=== PATIENT | female | born 1985 | race American Indian/Alaskan Native ===

== ENCOUNTER 2016-03-29 08:24 | Emergency (ER) | payer MEDICAID ==
[2016-03-29 09:15] LABS: Basophils % (Auto) 0.9 % (0.0-1.8); Eosinophils % (Auto) 1.1 % (0.0-4.3); Hematocrit 42.3 % (30.3-42.9); Hemoglobin 14.1 gm/dl (10.1-14.3); Mean Corpuscular HGB Conc 33 % (30-34); Mean Corpuscular Hemoglobin 33 pg (28-32); Mean Corpuscular Volume 99 fl (79-97); Platelet Count 270 K/mm3 (140-440); Red Blood Count 4.29 M/mm3 (3.65-5.03); Red Cell Distribution Width 12.7 % (13.2-15.2); White Blood Count 4.7 K/mm3 (4.5-11.0)
[2016-03-29 09:24] LABS: Alanine Aminotransferase 12 units/L (7-56); Albumin 4.1 g/dL (3.9-5); Albumin/Globulin Ratio 1.5 %; Alkaline Phosphatase 32 units/L (35-129); Anion Gap 16 mmol/L; BUN/Creatinine Ratio 13.33; Bilirubin,Total 0.6 mg/dL (0.1-1.2); Blood Urea Nitrogen 8 mg/dL (7-17); Calcium 8.5 mg/dL (8.4-10.2); Carbon Dioxide 25 mmol/L (22-30); Glucose 118 mg/dL (65-100); Lipase 21 units/L (13-60); Potassium 3.9 mmol/L (3.6-5.0); Sodium 141 mmol/L (137-145); Total Protein 6.9 g/dL (6.3-8.2)
[2016-03-29 09:39] LABS: Bacteria,Urine 3+ /HPF (Negative); Bilirubin,Urine NEG (Negative); Blood,Urine LG (Negative); Ketones,Urine NEG (Negative); Leukocyte Esterase,Urine MOD (Negative); Mucus,Urine 3+ /HPF; Nitrite,Urine POS (Negative)
--- NOTE | 2016-03-29 09:47 | Emergency Department Report ---
Chief Complaint: Chest Pain Stated Complaint: BLEEDING/CLOTTING/CHEST PAIN Time Seen by Provider: 03/29/16 09:42 - HPI History of Present Illness: Patient reports vaginal bleeding with low abdominal and chest pain , migraine headaches, intermittent blurred vision and loss of appetite for over a month. Patient was seen and treated in the ED last week, however symptoms continue to persist. She was instructed by Dr. Portillo to return back for the ED for further evaluation. LMP 10/15/15 irregular menses - ROS Review of Systems: all other systems are unremarkable except for documentation in HPI - Exam Vital Signs: Vital Signs 03/29/16 08:36 Temperature 97.8 F Pulse Rate 68 Respiratory 18 Rate Blood Pressure 110/68 O2 Sat by Pulse 100 Oximetry Physical Exam: Gen: well developed and nourished, NAD Cardio: heart sounds present S1-S2, no ectopy, murmur or gallops Resp: even and unlabored, lungs CTA geremias, no wheezing, rales or rhonchi MSE screening note: Focused history and physical exam performed. Due to findings the following was ordered: radiology and laboratory studies ordered ED Medical Decision Making - Lab Data Result diagrams: 03/29/16 08:51 03/29/16 08:51 ED Disposition for MSE Condition: Stable
[2016-03-29 10:24] LABS: Creatine Kinase MB 1.4 ng/mL (0.0-4.0)
--- NOTE | 2016-03-29 11:49 | XRay Report ---
ROUTINE CHEST, TWO VIEWS: HISTORY: chest pain. The trachea, heart, mediastinal contour, lung arreola and bony thorax are unremarkable. IMPRESSION: Unremarkable chest x-ray.
[2016-03-29 14:15] VITALS: BP 120/89
--- NOTE | 2016-03-29 14:27 | Emergency Department Report ---
ED General Adult HPI - General Chief complaint: Chest Pain Stated complaint: BLEEDING/CLOTTING/CHEST PAIN Time Seen by Provider: 03/29/16 14:22 Source: patient Mode of arrival: Ambulatory Limitations: No Limitations - History of Present Illness Initial comments: The patient states that she noted bright red blood on her toilet paper yesterday and again today. She has history of hemorrhoids with . She was also had some vague suprapubic and lower back discomfort and perhaps some dysuria. She is a poor historian. She's had no recent fever or chills there's been no nausea vomiting diarrhea or chills. She reports neurological change. -: days(s) Location: back, abdomen Quality: aching Consistency: intermittent, now resolved Improves with: none Worsens with: none Associated Symptoms: denies other symptoms Treatments Prior to Arrival: none - Related Data Previous Rx's Medication Instructions Recorded Last Taken Type Sulfamethoxazole/Trimethoprim 1 tab PO BID #10 tab 03/29/16 Unknown Rx [Bactrim 400-80 mg] traMADol [Ultram] 50 mg PO Q6HR PRN #10 tablet 03/29/16 Unknown Rx Allergies Allergy/AdvReac Type Severity Reaction Status Date / Time ibuprofen Allergy Intermediate Rash Verified 12/07/13 14:25 ED Review of Systems ROS: Stated complaint: BLEEDING/CLOTTING/CHEST PAIN Other details as noted in HPI Constitutional: denies: chills, fever Eyes: denies: eye pain, eye discharge, vision change ENT: denies: ear pain, throat pain Respiratory: denies: cough, shortness of breath, wheezing Cardiovascular: denies: chest pain, palpitations Endocrine: no symptoms reported Gastrointestinal: abdominal pain. denies: nausea, diarrhea Genitourinary: dysuria. denies: urgency, discharge Musculoskeletal: back pain. denies: joint swelling, arthralgia Skin: denies: rash, lesions Neurological: denies: headache, weakness, paresthesias Psychiatric: denies: anxiety, depression Hematological/Lymphatic: denies: easy bleeding, easy bruising ED Past Medical Hx - Past Medical History Hx Congestive Heart Failure: No Hx Diabetes: No Hx Psychiatric Treatment: No Hx Asthma: No Hx COPD: No Additional medical history: bronchitis - Surgical History Additional Surgical History: D&C, ectopic (2013) - Social History Smoking Status: Unknown if ever smoked Substance Use Type: None - Medications Home Medications: Home Medications Medication Instructions Recorded Confirmed Last Taken Type Sulfamethoxazole/Trimethoprim 1 tab PO BID #10 tab 03/29/16 Unknown Rx [Bactrim 400-80 mg] traMADol [Ultram] 50 mg PO Q6HR PRN #10 tablet 03/29/16 Unknown Rx ED Physical Exam - General Limitations: No Limitations General appearance: alert, in no apparent distress, obese - Head Head exam: Present: atraumatic, normocephalic - Eye Eye exam: Present: normal appearance. Absent: scleral icterus - ENT ENT exam: Present: normal exam, mucous membranes moist - Neck Neck exam: Present: normal inspection - Respiratory Respiratory exam: Present: normal lung sounds bilaterally. Absent: respiratory distress - Cardiovascular Cardiovascular Exam: Present: regular rate, normal rhythm. Absent: systolic murmur, diastolic murmur, rubs, gallop - GI/Abdominal GI/Abdominal exam: Present: soft, normal bowel sounds. Absent: distended, tenderness, guarding, rebound, rigid - Rectal Rectal exam: Present: hemorrhoids (external hemorrhoid no blood noted.) - Extremities Exam Extremities exam: Present: normal inspection - Back Exam Back exam: Present: normal inspection - Neurological Exam Neurological exam: Present: alert, oriented X3, CN II-XII intact. Absent: motor sensory deficit - Psychiatric Psychiatric exam: Present: normal affect, normal mood - Skin Skin exam: Present: warm, dry, intact, normal color. Absent: rash ED Course Vital Signs 03/29/16 03/29/16 03/29/16 08:36 14:01 14:14 Temperature 97.8 F Pulse Rate 68 90 83 Respiratory 18 16 Rate Blood Pressure 110/68 Blood Pressure 120/89 [Right] O2 Sat by Pulse 100 100 Oximetry 03/29/16 03/29/16 14:16 14:19 Temperature Pulse Rate 83 Respiratory 16 Rate Blood Pressure Blood Pressure [Right] O2 Sat by Pulse 100 Oximetry ED Medical Decision Making - Lab Data Result diagrams: 03/29/16 08:51 03/29/16 08:51 Laboratory Results - last 24 hr 03/29/16 03/29/16 03/29/16 08:51 08:51 08:58 WBC 4.7 RBC 4.29 Hgb 14.1 Hct 42.3 MCV 99 H MCH 33 H MCHC 33 RDW 12.7 L Plt Count 270 Lymph % (Auto) 48.1 H [place] % (Auto) 10.6 H Eos % (Auto) 1.1 Baso % (Auto) 0.9 Lymph # 2.3 [place] # 0.5 Eos # 0.0 Baso # 0.0 Seg Neutrophils % 39.3 L Seg Neutrophils # 1.8 Sodium 141 Potassium 3.9 Chloride 104.0 Carbon Dioxide 25 Anion Gap 16 BUN 8 Creatinine 0.6 L Estimated GFR > 60 BUN/Creatinine Ratio 13.33 Glucose 118 H Calcium 8.5 Total Bilirubin 0.6 AST 18 ALT 12 Alkaline Phosphatase 32 L Total Creatine Kinase CK-MB (CK-2) CK-MB (CK-2) Rel Index Troponin T < 0.010 Total Protein 6.9 Albumin 4.1 Albumin/Globulin Ratio 1.5 Lipase 21 HCG, Quant Urine Color [place] Urine Turbidity Cloudy Urine pH 5.0 Ur Specific [place] 1.023 Urine Protein 30 mg/dl Urine Glucose (UA) Neg Urine Ketones Neg Urine Blood Lg Urine Nitrite Pos Urine Bilirubin Neg Urine Urobilinogen 2.0 Ur Leukocyte Esterase Mod Urine WBC (Auto) 34.0 H Urine RBC (Auto) 7.0 U Epithel Cells (Auto) 4.0 Urine Bacteria (Auto) 3+ Urine Mucus 3+ 03/29/16 03/29/16 09:52 09:53 WBC RBC Hgb Hct MCV MCH MCHC RDW Plt Count Lymph % (Auto) [place] % (Auto) Eos % (Auto) Baso % (Auto) Lymph # [place] # Eos # Baso # Seg Neutrophils % Seg Neutrophils # Sodium Potassium Chloride Carbon Dioxide Anion Gap BUN Creatinine Estimated GFR BUN/Creatinine Ratio Glucose Calcium Total Bilirubin AST ALT Alkaline Phosphatase Total Creatine Kinase 105 CK-MB (CK-2) 1.4 CK-MB (CK-2) Rel Index 1.3 Troponin T Total Protein Albumin Albumin/Globulin Ratio Lipase HCG, Quant < 2 Urine Color Urine Turbidity Urine pH Ur Specific [place] Urine Protein Urine Glucose (UA) Urine Ketones Urine Blood Urine Nitrite Urine Bilirubin Urine Urobilinogen Ur Leukocyte Esterase Urine WBC (Auto) Urine RBC (Auto) U Epithel Cells (Auto) Urine Bacteria (Auto) Urine Mucus Critical care attestation.: If time is entered above; I have spent that time in minutes in the direct care of this critically ill patient, excluding procedure time. ED Disposition Clinical Impression: External hemorrhoids, Rectal bleeding Urinary tract infection Qualifiers: Urinary tract infection type: site unspecified Hematuria presence: without hematuria Qualified Code(s): N39.0 - Urinary tract infection, site not specified Disposition: DISCHARGED TO HOME OR SELFCARE Is pt being admited?: No Does the pt Need Aspirin: No Condition: Stable Instructions: Hemorrhoids (ED), Rectal Bleeding (ED), Urinary Tract Infection in Women (ED) Additional Instructions: Follow-up with a primary care provider. This persists evaluation with a GI doctor may be required. Return any acute change or problem. Rx as directed. Hemorrhoid suppositories or preparation H is [id number]. Prescriptions: Sulfamethoxazole/Trimethoprim [Bactrim 400-80 mg] 1 tab PO BID #10 tab traMADol [Ultram] 50 mg PO Q6HR PRN #10 tablet PRN Reason: Pain Referrals: PRIMARY CARE, [Primary Care Provider] - 3-5 Days [facility] [Provider Group] - 3-5 Days Time of Disposition: 15:05
--- NOTE | 2016-03-29 15:23 | Emergency Department Report ---
ED Female HPI - General Chief complaint: Vaginal Bleeding Stated complaint: BLEEDING/CLOTTING/CHEST PAIN Time Seen by Provider: 03/29/16 14:22 Source: patient Mode of arrival: Ambulatory Limitations: No Limitations - History of Present Illness Initial comments: The patient states that she was sent by Dr. Patric Portillo to the emergency department for evaluation of vaginal bleeding of one month's duration. She states that she has occasional abdominal cramping but does not complain of any pain at this time. Apparently she mentioned chest pain as well to the triage nurse but does not complain of chest pain either. She seems quite emotionally labile. He is very insistent that she be seen by Dr. Patric Portillo. She states that she was told to page him right away when she arrives. He is hardly allowing me to examine her. Review the patient's previous medical records and the case that she was seen on 10/18/15 in the emergency department with a diagnosis of functional uterine bleeding. Apparently the patient has had this problem for for longer than one month. In addition in 2013 she had a left salpingectomy for ectopic . At that time she required a psychiatric consult with Rubi Diane. Apparently she was on a 1013 at that time but ultimately released for suicidal ideation. Has no ostensible psychiatric complaints at this time. I did additionally find a culture report from 02/27/2016 the patient's urine. This showed a urinary tract infection with Escherichia coli. Patient states that she has not taken any antibiotics for UTI for quite some time. Her organism was sensitive to Bactrim. Not certain if she was noncompliant. In addition to having no chest pain at this time the patient denies cough or active vaginal bleeding. She is not complaining of any abdominal pain. MD Complaint: vaginal bleeding -: month(s) Location: suprapubic Radiation: non-radiating Severity: Unable to Determine Quality: other (poorly) Consistency: intermittent Associated Symptoms: vaginal bleeding - Related Data Previous Rx's Medication Instructions Recorded Last Taken Type Sulfamethoxazole/Trimethoprim 1 tab PO BID #14 tab 03/29/16 Unknown Rx [Bactrim 400-80 mg] Allergies Allergy/AdvReac Type Severity Reaction Status Date / Time ibuprofen Allergy Intermediate Rash Verified 12/07/13 14:25 ED Review of Systems ROS: Stated complaint: BLEEDING/CLOTTING/CHEST PAIN Other details as noted in HPI Constitutional: denies: chills, fever Eyes: denies: eye pain, eye discharge, vision change ENT: denies: ear pain, throat pain Respiratory: denies: cough, shortness of breath, wheezing Cardiovascular: denies: chest pain, palpitations Endocrine: no symptoms reported Gastrointestinal: abdominal pain. denies: nausea, diarrhea Genitourinary: dysuria, other (intermittent for month). denies: urgency, discharge Musculoskeletal: back pain. denies: joint swelling, arthralgia Skin: denies: rash, lesions Neurological: denies: headache, weakness, paresthesias Psychiatric: denies: anxiety, depression Hematological/Lymphatic: denies: easy bleeding, easy bruising ED Past Medical Hx - Past Medical History Hx Congestive Heart Failure: No Hx Diabetes: No Hx Psychiatric Treatment: No Hx Asthma: No Hx COPD: No Additional medical history: bronchitis - Surgical History Additional Surgical History: D&C, ectopic (2013) - Social History Smoking Status: Unknown if ever smoked Substance Use Type: None - Medications Home Medications: Home Medications Medication Instructions Recorded Confirmed Last Taken Type Sulfamethoxazole/Trimethoprim 1 tab PO BID #14 tab 03/29/16 Unknown Rx [Bactrim 400-80 mg] ED Physical Exam - General Limitations: No Limitations General appearance: alert, in no apparent distress, obese - Head Head exam: Present: atraumatic, normocephalic - Eye Eye exam: Present: normal appearance - ENT ENT exam: Present: mucous membranes moist - Neck Neck exam: Present: normal inspection. Absent: tenderness, meningismus - Respiratory Respiratory exam: Present: normal lung sounds bilaterally. Absent: respiratory distress - Cardiovascular Cardiovascular Exam: Present: regular rate, normal rhythm. Absent: systolic murmur, diastolic murmur, rubs, gallop - GI/Abdominal GI/Abdominal exam: Present: soft, normal bowel sounds. Absent: distended, tenderness, guarding, rebound, rigid, organomegaly, mass - External exam: Present: other (deferred) Speculum exam: Present: other (deferred) - Extremities Exam Extremities exam: Present: normal inspection - Back Exam Back exam: Present: normal inspection - Neurological Exam Neurological exam: Present: alert, oriented X3, CN II-XII intact. Absent: motor sensory deficit - Psychiatric Psychiatric exam: Present: normal affect, normal mood - Skin Skin exam: Present: warm, dry, intact, normal color. Absent: rash ED Course Vital Signs 03/29/16 03/29/16 03/29/16 08:36 14:01 14:14 Temperature 97.8 F Pulse Rate 68 90 83 Respiratory 18 16 Rate Blood Pressure 110/68 Blood Pressure 120/89 [Right] O2 Sat by Pulse 100 100 Oximetry 03/29/16 03/29/16 14:16 14:19 Temperature Pulse Rate 83 Respiratory 16 Rate Blood Pressure Blood Pressure [Right] O2 Sat by Pulse 100 Oximetry - Reevaluation(s) Reevaluation #1: The patient that her workup demonstrated a UTI and that we would treat that as well as culture her urine again. She immediately told me that she expected Dr. Portillo to come to the emergency department to see him. She is demanding that I page him right away. I told her that I had no problem doing so. However, I reassured her that we did not find any emergency medical condition that required an urgent [employer] consultation today. Nonetheless I was happy to call Dr. Portillo to discuss her case. Dr. Trinidad was cable television installer. Dr. Trinidad agreed that the patient did not require emergency evaluation. He stated that they would be happy to see her in the office. He informed me that the patient had not been in the office for more than 2 years. He also stated he was aware that she did have a psychiatric history upon review of her medical records. Not withstanding this, neither Dr. Trinidad nor I could see any reason for emergency evaluation by a farm marketer. 03/29/16 15:52 Spoke to the patient again. I offered to let her speak to Dr. Trinidad directly via telephone. The patient was aggressive with me concerning this but seemed to agree. I then a gentleman had joined her in the room. I found his behavior to be unreasonable and aggressive as well. Nonetheless, I informed them that I would ask Dr. Trinidad to speak to the patient. Dr. Trinidad was kind enough to speak to the patient. He told her that she should come to the office for evaluation. He told her that she did not need any emergency intervention or further examination by farm marketer at this time. Thus, the patient will be discharged. 03/29/16 15:53 ED Medical Decision Making - Lab Data Result diagrams: 03/29/16 08:51 03/29/16 08:51 Laboratory Results - last 24 hr 03/29/16 03/29/16 03/29/16 08:51 08:51 08:58 WBC 4.7 RBC 4.29 Hgb 14.1 Hct 42.3 MCV 99 H MCH 33 H MCHC 33 RDW 12.7 L Plt Count 270 Lymph % (Auto) 48.1 H [place] % (Auto) 10.6 H Eos % (Auto) 1.1 Baso % (Auto) 0.9 Lymph # 2.3 Bell # 0.5 Eos # 0.0 Baso # 0.0 Seg Neutrophils % 39.3 L Seg Neutrophils # 1.8 Sodium 141 Potassium 3.9 Chloride 104.0 Carbon Dioxide 25 Anion Gap 16 BUN 8 Creatinine 0.6 L Estimated GFR > 60 BUN/Creatinine Ratio 13.33 Glucose 118 H Calcium 8.5 Total Bilirubin 0.6 AST 18 ALT 12 Alkaline Phosphatase 32 L Total Creatine Kinase CK-MB (CK-2) CK-MB (CK-2) Rel Index Troponin T < 0.010 Total Protein 6.9 Albumin 4.1 Albumin/Globulin Ratio 1.5 Lipase 21 HCG, Quant Urine Color [place] Urine Turbidity Cloudy Urine pH 5.0 Ur Specific [place] 1.023 Urine Protein 30 mg/dl Urine Glucose (UA) Neg Urine Ketones Neg Urine Blood Lg Urine Nitrite Pos Urine Bilirubin Neg Urine Urobilinogen 2.0 Ur Leukocyte Esterase Mod Urine WBC (Auto) 34.0 H Urine RBC (Auto) 7.0 U Epithel Cells (Auto) 4.0 Urine Bacteria (Auto) 3+ Urine Mucus 3+ 03/29/16 03/29/16 09:52 09:53 WBC RBC Hgb Hct MCV MCH MCHC RDW Plt Count Lymph % (Auto) [place] % (Auto) Eos % (Auto) Baso % (Auto) Lymph # [place] # Eos # Baso # Seg Neutrophils % Seg Neutrophils # Sodium Potassium Chloride Carbon Dioxide Anion Gap BUN Creatinine Estimated GFR BUN/Creatinine Ratio Glucose Calcium Total Bilirubin AST ALT Alkaline Phosphatase Total Creatine Kinase 105 CK-MB (CK-2) 1.4 CK-MB (CK-2) Rel Index 1.3 Troponin T Total Protein Albumin Albumin/Globulin Ratio Lipase HCG, Quant < 2 Urine Color Urine Turbidity Urine pH Ur Specific [place] Urine Protein Urine Glucose (UA) Urine Ketones Urine Blood Urine Nitrite Urine Bilirubin Urine Urobilinogen Ur Leukocyte Esterase Urine WBC (Auto) Urine RBC (Auto) U Epithel Cells (Auto) Urine Bacteria (Auto) Urine Mucus Critical care attestation.: If time is entered above; I have spent that time in minutes in the direct care of this critically ill patient, excluding procedure time. ED Disposition Clinical Impression: DUB (dysfunctional uterine bleeding), Aggressive behavior Urinary tract infection Qualifiers: Urinary tract infection type: site unspecified Hematuria presence: without hematuria Qualified Code(s): N39.0 - Urinary tract infection, site not specified Disposition: DISCHARGED TO HOME OR SELFCARE Is pt being admited?: No Does the pt Need Aspirin: No Condition: Stable Instructions: Urinary Tract Infection in Women (ED) Additional Instructions: Follow-up with a primary care provider. This persists evaluation with a GI doctor may be required. Return any acute change or problem. Rx as directed. Hemorrhoid suppositories or preparation H is [id number]. Prescriptions: Sulfamethoxazole/Trimethoprim [Bactrim 400-80 mg] 1 tab PO BID #14 tab Referrals: PATRIC PORTILLO MD [Staff Physician] - 2-3 Days Time of Disposition: 15:49
== END 2016-03-29 16:05 | disposition home or self-care (01) ==
LOC: ED 08:24
DX: N93.8 Other specified abnormal uterine and vaginal bleeding (principal); N39.0 Urinary tract infection, site not specified; J40 Bronchitis, not specified as acute or chronic; Z88.8 Allergy status to other drugs, medicaments and biological substances
CPT/HCPCS: 36415; 71020; 80053; 81001; 82550; 82553; 83690; 84484; 84702; 85025; 87086; 93005; 93010

== ENCOUNTER 2018-12-20 21:09 | Emergency (ER) | payer MEDICAID ==
[2018-12-20 21:20] VITALS: BP 104/73
--- NOTE | 2018-12-20 21:28 | Event Note ---
ED Screening Note Date of service: 12/20/18 Time: 21:26 ED Screening Note: 33 y o female presents to Ed at 17 weeks gestationwith minimal amniotic fluid leaking x 5 days hasnt f/u with obgyn since last visit to ER This initial assessment/diagnostic orders/clinical plan/treatment(s) is/are subject to change based on patients health status, clinical progression and re- assessment by fellow clinical providers in the ED. Further treatment and workup at subsequent clinical providers discretion. Patient/guardian urged not to elope from the ED as their condition may be serious if not clinically assessed and managed. Initial orders include: US OB
[2018-12-20 21:57] LABS: Bilirubin,Urine NEG (Negative); Blood,Urine MOD (Negative); Color,Urine Yellow (Yellow); Mucus,Urine FEW /HPF; Protein,Urine <15 mg/dL mg/dL (Negative); Urobilinogen,Urine < 2.0 mg/dL (<2.0)
[2018-12-20] MEDS ORDERED: BUTORPHANOL 2 MG/1 ML INJ IV ONE (22:28)
[2018-12-20] MEDS ORDERED: ONDANSETRON 4 MG/2 ML INJ IV ONE (22:28)
[2018-12-20 22:57] LABS: Basophils % (Auto) 0.6 % (0.0-1.8); Eosinophils # (Auto) 0.1 K/mm3 (0.0-0.4); Eosinophils % (Auto) 1.9 % (0.0-4.3); Hematocrit 41.2 % (30.3-42.9); Lymphocytes % (Auto) 36.1 % (13.4-35.0); Mean Corpuscular HGB Conc 34 % (30-34); Mean Corpuscular Volume 99 fl (79-97); Monocytes # (Auto) 0.6 K/mm3 (0.0-0.8); Monocytes % (Auto) 11.3 % (0.0-7.3); Platelet Count 214 K/mm3 (140-440); Red Blood Count 4.17 M/mm3 (3.65-5.03); Red Cell Distribution Width 12.3 % (13.2-15.2)
--- NOTE | 2018-12-20 23:19 | Ultrasound Report ---
ULTRASOUND OBSTETRIC INDICATION / CLINICAL INFORMATION: vaginal leaking. Clinical Gestational Age (GA): 16 weeks 6 days TECHNIQUE: Transabdominal. COMPARISON: 12/13/18 FINDINGS: There is a single intrauterine . Biparietal Diameter = 3.5 cm = 16 weeks, 6 day(s). Head Circumference = 13.4 cm = 16 weeks, 6 day(s). Abdominal Circumference = 10.3 cm = 16 weeks, 2 day(s). Femur Length = 2.1 cm = 16 weeks, 2 day(s). Average Ultrasound Age (AUA) = 16 weeks, 4 day(s). Heart Rate: 146 beats per minute. Estimated Weight in grams (if calculated): 152 g Estimated Weight Growth Percentile (if calculated): Not calculated Position: breech. Cervix: closed. Length in cm (if measured): 3.4 Placenta: anterior and free of the os. Amniotic Fluid Volume: normal Amniotic Fluid Index (DUANE) in cm (if calculated): 6.3. Maternal Adnexa: No significant abnormality. IMPRESSION: 1. Single, living intrauterine with estimated sonographic age of 16 weeks, 6 day(s). 2. No acute sonographic abnormality. Signer Name: Pretty More MD Signed: 12/20/2018 11:15 PM Workstation Name: [id number]
[2018-12-20 23:38] LABS: Alanine Aminotransferase 16 units/L (7-56); Albumin 3.5 g/dL (3.9-5); BUN/Creatinine Ratio 18; Blood Urea Nitrogen 7 mg/dL (7-17); Calcium 8.5 mg/dL (8.4-10.2); Hemolysis Index 12
--- NOTE | 2018-12-21 00:40 | Emergency Department Report ---
ED General Adult HPI - General Chief complaint: Abdominal Pain Stated complaint: ABDOMINAL PAIN AND CHEST PAIN(17 WKS PREG) Time Seen by Provider: 12/20/18 21:26 Source: patient Mode of arrival: Ambulatory Limitations: No Limitations - History of Present Illness Initial comments: The patient presents to the emergency department the chief complaint of ab dominal pain that started 2 days ago. Patient states she is a with a history of 3 miscarriages who sees a doctor Denis at [facility] for this high risk . Patient also complains of having possible fluid leakage from her vagina. Patient denies any vaginal bleeding. -: Sudden Location: genitals Radiation: non-radiation Severity scale (0 -10): 6 Quality: other (pressure) Consistency: intermittent Improves with: none Worsens with: none Associated Symptoms: denies other symptoms Treatments Prior to Arrival: none - Related Data Previous Rx's Medication Instructions Recorded Last Taken Type Fluconazole [Diflucan TAB] 150 mg PO ONCE #1 tablet 12/13/18 Unknown Rx metroNIDAZOLE [Flagyl] 500 mg PO Q12HR #20 tab 12/13/18 Unknown Rx Acetaminophen/Codeine [Tylenol 1 tab PO Q6H PRN #15 tab 12/21/18 Unknown Rx /Codeine # 3 tab] Ondansetron [Zofran Odt] 4 mg PO Q4HR PRN #20 tab.rapdis 12/21/18 Unknown Rx Allergies Allergy/AdvReac Type Severity Reaction Status Date / Time ibuprofen Allergy Intermediate Rash Verified 12/07/13 14:25 ED Review of Systems ROS: Stated complaint: ABDOMINAL PAIN AND CHEST PAIN(17 WKS PREG) Other details as noted in HPI Comment: All other systems reviewed and negative Constitutional: denies: chills, fever Eyes: denies: eye pain, eye discharge, vision change ENT: denies: ear pain, throat pain Respiratory: denies: cough, shortness of breath, wheezing Cardiovascular: denies: chest pain, palpitations Endocrine: no symptoms reported Gastrointestinal: denies: abdominal pain, nausea, diarrhea Genitourinary: denies: urgency, dysuria, discharge Musculoskeletal: denies: back pain, joint swelling, arthralgia Skin: denies: rash, lesions Neurological: denies: headache, weakness, paresthesias Psychiatric: denies: anxiety, depression Hematological/Lymphatic: denies: easy bleeding, easy bruising ED Past Medical Hx - Past Medical History Previous Medical History?: Yes Hx Congestive Heart Failure: No Hx Diabetes: No Hx Psychiatric Treatment: No Hx Asthma: No Hx COPD: No Additional medical history: bronchitis - Surgical History Past Surgical History?: Yes Additional Surgical History: D&C, ectopic (2013), Left Salpingectomy - Social History Smoking Status: Never Smoker Substance Use Type: None - Medications Home Medications: Home Medications Medication Instructions Recorded Confirmed Last Taken Type Fluconazole [Diflucan TAB] 150 mg PO ONCE #1 tablet 12/13/18 Unknown Rx metroNIDAZOLE [Flagyl] 500 mg PO Q12HR #20 tab 12/13/18 Unknown Rx Acetaminophen/Codeine [Tylenol 1 tab PO Q6H PRN #15 tab 12/21/18 Unknown Rx /Codeine # 3 tab] Ondansetron [Zofran Odt] 4 mg PO Q4HR PRN #20 tab.rapdis 12/21/18 Unknown Rx ED Physical Exam - General Limitations: No Limitations General appearance: alert, in no apparent distress - Head Head exam: Present: atraumatic, normocephalic - Eye Eye exam: Present: normal appearance, PERRL, EOMI - ENT ENT exam: Present: mucous membranes moist - Neck Neck exam: Present: normal inspection - Respiratory Respiratory exam: Present: normal lung sounds bilaterally. Absent: respiratory distress - Cardiovascular Cardiovascular Exam: Present: regular rate, normal rhythm. Absent: systolic murmur, diastolic murmur, rubs, gallop - GI/Abdominal GI/Abdominal exam: Present: soft, normal bowel sounds - Rectal Rectal exam: Present: normal inspection - External exam: Present: normal external exam Speculum exam: Present: normal speculum exam, other (closed cervical os; exam chaperoned by Nurse Pauline Martines R.N.). Absent: erythema, vaginal discharge, cervical discharge, vaginal bleeding, laceration Bi-manual exam: Present: normal bi-manual exam - Extremities Exam Extremities exam: Present: normal inspection - Back Exam Back exam: Present: normal inspection - Neurological Exam Neurological exam: Present: alert, oriented X3 - Psychiatric Psychiatric exam: Present: normal affect, normal mood - Skin Skin exam: Present: warm, dry, intact, normal color. Absent: rash ED Course Vital Signs 12/20/18 12/20/18 21:14 23:35 Temperature 98.6 F Pulse Rate 80 Respiratory 16 18 Rate Blood Pressure 104/73 O2 Sat by Pulse 98 Oximetry ED Medical Decision Making - Lab Data Result diagrams: 12/20/18 22:31 12/20/18 22:31 Lab Results 12/20/18 12/20/18 12/20/18 Range/Units 21:30 22:31 22:31 WBC 5.7 (4.5-11.0) K/mm3 RBC 4.17 (3.65-5.03) M/mm3 Hgb 14.0 (10.1-14.3) gm/dl Hct 41.2 (30.3-42.9) % MCV 99 H (79-97) fl MCH 33 H (28-32) pg MCHC 34 (30-34) % RDW 12.3 L (13.2-15.2) % Plt Count 214 (140-440) K/mm3 Lymph % (Auto) 36.1 H (13.4-35.0) % [place] % (Auto) 11.3 H (0.0-7.3) % Eos % (Auto) 1.9 (0.0-4.3) % Baso % (Auto) 0.6 (0.0-1.8) % Lymph # 2.0 (1.2-5.4) K/mm3 [place] # 0.6 (0.0-0.8) K/mm3 Eos # 0.1 (0.0-0.4) K/mm3 Baso # 0.0 (0.0-0.1) K/mm3 Seg Neutrophils % 50.1 (40.0-70.0) % Seg Neutrophils # 2.8 (1.8-7.7) K/mm3 Sodium 135 L (137-145) mmol/L Potassium 4.0 (3.6-5.0) mmol/L Chloride 102.2 (98-107) mmol/L Carbon Dioxide 22 (22-30) mmol/L Anion Gap 15 mmol/L BUN 7 (7-17) mg/dL Creatinine 0.4 L (0.7-1.2) mg/dL Estimated GFR > 60 ml/min BUN/Creatinine Ratio 18 % Glucose 97 (65-100) mg/dL Calcium 8.5 (8.4-10.2) mg/dL Total Bilirubin 0.20 (0.1-1.2) mg/dL AST 21 (5-40) units/L ALT 16 (7-56) units/L Alkaline Phosphatase 48 (35-129) units/L Total Protein 6.6 (6.3-8.2) g/dL Albumin 3.5 L (3.9-5) g/dL Albumin/Globulin Ratio 1.1 % HCG, Quant (0-4) mIU/mL Urine Color Yellow (Yellow) Urine Turbidity Slightly-cloudy (Clear) Urine pH 5.0 (5.0-7.0) Ur Specific [place] 1.020 (1.003-1.030) Urine Protein <15 mg/dl (Negative) mg/dL Urine Glucose (UA) Neg (Negative) mg/dL Urine Ketones Tr (Negative) mg/dL Urine Blood Mod (Negative) Urine Nitrite Neg (Negative) Urine Bilirubin Neg (Negative) Urine Urobilinogen < 2.0 (<2.0) mg/dL Ur Leukocyte Esterase Lg (Negative) Urine WBC (Auto) 38.0 H (0.0-6.0) /HPF Urine RBC (Auto) 6.0 (0.0-6.0) /HPF U Epithel Cells (Auto) 3.0 (0-13.0) /HPF Urine Mucus Few /HPF 12/20/18 Range/Units 22:31 WBC (4.5-11.0) K/mm3 RBC (3.65-5.03) M/mm3 Hgb (10.1-14.3) gm/dl Hct (30.3-42.9) % MCV (79-97) fl MCH (28-32) pg MCHC (30-34) % RDW (13.2-15.2) % Plt Count (140-440) K/mm3 Lymph % (Auto) (13.4-35.0) % [place] % (Auto) (0.0-7.3) % Eos % (Auto) (0.0-4.3) % Baso % (Auto) (0.0-1.8) % Lymph # (1.2-5.4) K/mm3 [place] # (0.0-0.8) K/mm3 Eos # (0.0-0.4) K/mm3 Baso # (0.0-0.1) K/mm3 Seg Neutrophils % (40.0-70.0) % Seg Neutrophils # (1.8-7.7) K/mm3 Sodium (137-145) mmol/L Potassium (3.6-5.0) mmol/L Chloride (98-107) mmol/L Carbon Dioxide (22-30) mmol/L Anion Gap mmol/L BUN (7-17) mg/dL Creatinine (0.7-1.2) mg/dL Estimated GFR ml/min BUN/Creatinine Ratio % Glucose (65-100) mg/dL Calcium (8.4-10.2) mg/dL Total Bilirubin (0.1-1.2) mg/dL AST (5-40) units/L ALT (7-56) units/L Alkaline Phosphatase (35-129) units/L Total Protein (6.3-8.2) g/dL Albumin (3.9-5) g/dL Albumin/Globulin Ratio % HCG, Quant [id number] H (0-4) mIU/mL Urine Color (Yellow) Urine Turbidity (Clear) Urine pH (5.0-7.0) Ur Specific [place] (1.003-1.030) Urine Protein (Negative) mg/dL Urine Glucose (UA) (Negative) mg/dL Urine Ketones (Negative) mg/dL Urine Blood (Negative) Urine Nitrite (Negative) Urine Bilirubin (Negative) Urine Urobilinogen (<2.0) mg/dL Ur Leukocyte Esterase (Negative) Urine WBC (Auto) (0.0-6.0) /HPF Urine RBC (Auto) (0.0-6.0) /HPF U Epithel Cells (Auto) (0-13.0) /HPF Urine Mucus /HPF - Radiology Data Radiology results: report reviewed - Medical Decision Making Discussed findings with patient and need for follow-up with her [employer] Critical care attestation.: If time is entered above; I have spent that time in minutes in the direct care of this critically ill patient, excluding procedure time. ED Disposition Clinical Impression: Abdominal pain in Disposition: DC-01 TO HOME OR SELFCARE Is pt being admited?: No Does the pt Need Aspirin: No Condition: Stable Instructions: Abdominal Pain in (ED) Additional Instructions: return if worse Prescriptions: Acetaminophen/Codeine [Tylenol /Codeine # 3 tab] 1 tab PO Q6H PRN #15 tab PRN Reason: pain Ondansetron [Zofran Odt] 4 mg PO Q4HR PRN #20 tab.rapdis PRN Reason: Nausea Referrals: PRIMARY CARE,MD [Primary Care Provider] - 3-5 Days Time of Disposition: 01:05
== END 2018-12-21 01:20 | disposition home or self-care (01) ==
LOC: ED 21:09
DX: O26.892 Other specified pregnancy related conditions, second trimester (principal); R10.2 Pelvic and perineal pain; Z79.899 Other long term (current) drug therapy; Z3A.17 17 weeks gestation of pregnancy
CPT/HCPCS: 36415; 76805; 80053; 81001; 84702; 85025; 87086; 96374; 96375; 99284; J0595; J2405

== ENCOUNTER 2019-03-09 20:44 | Outpatient (CLI) | payer MEDICAID ==
[2019-03-09 23:09] LABS: Bilirubin,Urine NEG (Negative); Blood,Urine SM (Negative); Color,Urine Yellow (Yellow); Mucus,Urine 1+ /HPF; Protein,Urine <15 mg/dL mg/dL (Negative)
== END 2019-03-10 00:06 | disposition home or self-care (01) ==
LOC: TRG 20:44
PROVIDERS: ATTEND Obstetrics & Gynecology
DX: O26.893 Other specified pregnancy related conditions, third trimester (principal); R10.2 Pelvic and perineal pain; Z3A.39 39 weeks gestation of pregnancy
CPT/HCPCS: 59025; 81001